=== PATIENT | male | born 1960 | race African-American/Black ===

== ENCOUNTER 2024-11-23 11:52 | Day surgery (SDC) | payer OTHER ==
[2024-11-20 09:38] VITALS: BMI 35.7
[2024-11-23] MEDS ORDERED: Bupivacaine 0.25% HCL 30 ML VIAL ONE (13:53)
[2024-11-23] MEDS ORDERED: Lidocaine 1% PF 5 ML VIAL ONE (13:54)
[2024-11-23] MEDS ORDERED: fentaNYL PF 100 MCG/2 ML SYRINGE ONE (13:54)
[2024-11-23] MEDS ORDERED: Ondansetron PF 4 MG/2 ML Vial ONE (13:54)
[2024-11-23] MEDS ORDERED: Rocuronium Bromide 10 MG/ML (10ML VIAL) ONE (13:54)
[2024-11-23] MEDS ORDERED: PROPOFOL 20 ML ONE (13:55)
[2024-11-23] MEDS ORDERED: CEFAZOLIN 2 GM VIAL ONE (14:14)
[2024-11-23] MEDS ORDERED: SUGAMMADEX SODIUM 200 MG/2 ML VIAL ONE (14:56)
[2024-11-23] MEDS ORDERED: HYDROcodone/Acetaminophen 5/325 mg Tablet ONE (15:34)
== END 2024-11-23 16:34 | disposition home or self-care (01) ==
LOC: SDC 11:52
PROVIDERS: ATTEND Surgery
PROC: 0JH60WZ Insertion of Totally Implantable Vascular Access Device into Chest Subcutaneous Tissue and Fascia, Open Approach (ICD-10-PCS; principal; 2024-11-23)
DX: C18.7 Malignant neoplasm of sigmoid colon (principal); I10 Essential (primary) hypertension; I25.10 Atherosclerotic heart disease of native coronary artery without angina pectoris; E78.5 Hyperlipidemia, unspecified; F17.210 Nicotine dependence, cigarettes, uncomplicated; Z21 Asymptomatic human immunodeficiency virus [HIV] infection status; Z86.73 Personal history of transient ischemic attack (TIA), and cerebral infarction without residual deficits; Z79.82 Long term (current) use of aspirin; Z79.899 Other long term (current) drug therapy
CPT/HCPCS: 36561; 71045; C1788; J0169; J0665; J1100; J1642; J2250; J2405; J2704